=== PATIENT | male | born 1970 | race Caucasian/White ===

== ENCOUNTER 2021-11-18 07:27 | Outpatient (CLI) | payer OTHER | END 2021-11-18 07:28 | disposition home or self-care (01) | LOC: CSHCT 07:27 | PROVIDERS: ATTEND Internal Medicine | DX: Z12.2 Encounter for screening for malignant neoplasm of respiratory organs (principal); F17.210 Nicotine dependence, cigarettes, uncomplicated | CPT/HCPCS: 71271 ==

== ENCOUNTER 2023-11-10 07:49 | Outpatient (CLI) | payer OTHER | END 2023-11-10 07:50 | disposition home or self-care (01) | LOC: CSHCT 07:49 | PROVIDERS: ATTEND Internal Medicine | DX: Z12.2 Encounter for screening for malignant neoplasm of respiratory organs (principal); F17.210 Nicotine dependence, cigarettes, uncomplicated | CPT/HCPCS: 71271 ==

== ENCOUNTER 2024-04-24 11:46 | Outpatient (CLI) | payer OTHER | END 2024-04-24 11:47 | disposition home or self-care (01) | LOC: CSHRAD 11:46 | PROVIDERS: ATTEND Internal Medicine | DX: R50.9 Fever, unspecified (principal) | CPT/HCPCS: 71046 ==

== ENCOUNTER 2024-12-14 07:50 | Outpatient (CLI) | payer OTHER | END 2024-12-14 07:51 | disposition home or self-care (01) | LOC: CSHCP 07:50 | PROVIDERS: ATTEND Internal Medicine | DX: Z12.2 Encounter for screening for malignant neoplasm of respiratory organs (principal); F17.210 Nicotine dependence, cigarettes, uncomplicated; R06.02 Shortness of breath; J44.9 Chronic obstructive pulmonary disease, unspecified | CPT/HCPCS: 71271; 94060; 94664; 94726; 94729; 94760 ==